=== PATIENT | male | born 1965 | race Caucasian/White ===

== ENCOUNTER 2017-09-21 20:53 | Observation (INO) | payer MEDICARE, OTHER ==
[~2017-09-21] VITALS: Ht 170.2 cm; Wt 86.0 kg
[~2017-09-21 20:53] MED LIST: LISI-357 PO; ZOLP10TA3 PO
[2017-09-21] MEDS ORDERED: GADODIAMIDE PF 287 MG/ML 20 ML VIAL (for RAD MRI) IVCONTRAST ONE (20:54)
[2017-09-21 21:00] VITALS: BP 176/104; PULSE 71; RESP 18; O2SAT 100
[2017-09-21] MEDS ORDERED: SODIUM CHLORIDE 0.9% FLUSH 10 ML FLUSH IVF PRN (21:15)
[2017-09-21 21:22] VITALS: O2SAT 98
[2017-09-21] MEDS ORDERED: AMBI10TA PO (21:24)
[2017-09-21] MEDS ORDERED: ASPI-516 CHEW (21:24)
[2017-09-21] MEDS ORDERED: AMLO2.5T PO (21:24)
--- NOTE | 2017-09-21 21:24 | PD ---
HPI Chief Complaint: Neuro Symptoms/ Deficits Time Seen by Provider: 21:10 Travel History International Travel<30 days: No Contact w/Intl Traveler<30days: No Traveled to known affect area: No History of Present Illness HPI 51-year-old male presents to the emergency department by private transportation in the care of his son for evaluation of approximately 30 minutes of visual disturbance that has now resolved. Patient states that he was feeling unusual, patient had eaten 2 and half hours before so decided to eat additional food/ banana thinking perhaps his blood sugar is low. Then while he was watching TV; approximately an hour to half an hour prior to arrival to the emergency department he noticed that he was seeing only a portion/part of the characters on TV if they were standing [id number] he states that he could only see a portion of one of the characters. Reportedly the symptoms lasted for approximately 30 minutes and then resolve spontaneously. No headache, no dizziness, no complete loss of vision, no double vision, no trouble with his speech or difficulty swallowing, no balance disturbance, no upper or lower extremity numbness, tingling, or weakness. Patient does have history of hypertension for which he is prescribed amlodipine 2.5 mg daily as well as takes a low-dose aspirin; also takes anti-anxiety pill and more recently restarted Ambien for insomnia. Patient had been out of his Ambien for approximately 7 weeks. Patient states he did take his blood pressure medication today and his low-dose aspirin today. Patient's had no injury or fall. Patient states he has traumatic brain injury due to injury sustained in [place] in 2002 and was hospitalized for 2 years. Patient states that his speech is at his baseline. Patient does not report any change in speech or slurring of speech; family member (son) does not report any change in speech or slurring of speech and no facial droop. Patient states that his sister is a nurse at [facility] and encouraged him to come to the emergency room. Patient was [facility] ago and told that he has high cholesterol and hyperglycemia and was told to adjust his diet but was not started on any new dyslipidemic or diabetic medications. No recent fever or chills. Remote history of seizure; does not take any anticonvulsant medications reportedly. Patient reports he feels back to normal and states his vision is back to his baseline and back to normal. Patient also has had no chest pain, shortness of breath, nausea, vomiting, referred neck, jaw, back, shoulder, or arm pain. [facility], [facility] Past Medical History Narrative Medical Aspirin use, hypertension, dyslipidemia, hyperglycemia, traumatic brain injury, irritable bowel syndrome, appendectomy, marijuana use denies alcohol or tobacco use; nursing notes reviewed Hx Anticoagulant Therapy: Yes Blood Disorders: No Anxiety: Yes Heart Rhythm Problems: No Cancer: No Cardiovascular Problems: Yes High Cholesterol: No Chest Pain: No Congestive Heart Failure: No Endocrine: No Gastrointestinal Disorders: Yes (IBS) Genitourinary: No Hypertension: Yes Musculoskeletal: No Neurologic: Yes (TBI) Psychiatric: Yes Respiratory: No Past Surgical History Appendectomy: Yes Neurologic Surgery: Yes (tbi) Other Surgery: Yes Social History Alcohol Use: Yes Tobacco Use: Yes Substance Use: No Allergies-Medications (Allergen,Severity, Reaction): Coded Allergies: Iodinated Contrast- Oral and IV Dye (Verified Allergy, Severe, 09/21/17) Reported Meds & Prescriptions Reported Meds & Active Scripts Active Reported Ambien (Zolpidem Tartrate) 10 Mg Tab 10 Mg PO HS PRN Aspirin 81 Mg Chew 81 Mg CHEW DAILY Amlodipine (Amlodipine Besylate) 2.5 Mg Tab 2.5 Mg PO DAILY Review of Systems Except as stated in HPI: all other systems reviewed are Neg General / Constitutional: No: Fever, Chills Eyes: Positive: Visual changes HENT: No: Headaches, Vertigo, Lightheadedness, Neck Stiffness, Neck Pain Cardiovascular: No: Palpitations, Diaphoresis, Syncope Respiratory: No: Shortness of Breath Gastrointestinal: No: Nausea, Vomiting, Abdominal Pain Genitourinary: No: Flank Pain Skin: No Rash Neurologic: Positive: Other (transient visual disturbance), No: Weakness, Dizziness, Syncope, Focal Abnormalities, Coordination Problem, Headache, Change in Mentation, Slurred Speech, Paresthesia, Incontinence, Seizures Psychiatric: No: Anxiety Endocrine: No: Heat Intolerance Hematologic/Lymphatic: No: Easy Bruising Physical Exam Narrative GENERAL: Well-developed well-nourished male in no acute distress no respiratory distress; GCS 15; blood pressure elevated BP: 176/104 SKIN: Warm and dry. HEAD: Atraumatic. Normocephalic. EYES: Pupils equal and round. Extraocular muscles intact. No scleral icterus. No injection or drainage. ENT: No nasal bleeding or discharge. Mucous membranes pink and moist. NECK: Trachea midline. No JVD. Supple no meningismus no nuchal rigidity. CARDIOVASCULAR: Regular rate and rhythm. RESPIRATORY: No accessory muscle use. Clear to auscultation. Breath sounds equal bilaterally. GASTROINTESTINAL: Abdomen soft, non-tender, nondistended. Hepatic and splenic margins not palpable. MUSCULOSKELETAL: Extremities without clubbing, cyanosis, or edema. No obvious deformities. NEUROLOGICAL: Awake and alert. GCS 15. No obvious cranial nerve deficits. Motor grossly within normal limits. Five out of 5 muscle strength in the arms and legs. No limb ataxia. No pronator drift. DTRs 2+ and equal bilaterally as tested sensory exam intact. Normal, (mildly slow --"his normal since TBI") speech. PSYCHIATRIC: Appropriate mood and affect; insight and judgment normal. Data Data Last Documented VS Vital Signs Date Time Temp Pulse Resp B/P (MAP) Pulse Ox O2 Delivery O2 Flow Rate FiO2 09/22/17 00:34 68 18 168/95 (119) 97 Room Air Orders Orders Electrocardiogram (09/21/17 21:10) Prothrombin Time / Inr (Pt) (09/21/17 21:10) Act Partial Throm Time (Ptt) (09/21/17 21:10) Complete Blood Count With Diff (09/21/17 21:10) Comprehensive Metabolic Panel (09/21/17 21:10) Creatine Kinase (Cpk) (09/21/17 21:10) Drug Screen, Random Urine (09/21/17 21:10) Troponin I (09/21/17 21:10) Urinalysis - C+S If Indicated (09/21/17 21:10) Ct Brain W/O Iv Contrast(Rout) (09/21/17 21:10) Chest, Single Ap (09/21/17 21:10) Ecg Monitoring (09/21/17 21:10) Iv Access Insert/Monitor (09/21/17 21:10) Oximetry (09/21/17 21:10) Sodium Chloride 0.9% Flush (Ns Flush) (09/21/17 21:15) Ondansetron Inj (Zofran Inj) (09/21/17 22:13) Ondansetron Inj (Zofran Inj) (09/21/17 22:30) Clopidogrel (Plavix) (09/21/17 22:45) Aspirin (Aspirin) (09/21/17 22:45) Mra Carotids W Contrast (09/21/17 ) Mra Brain W/O Contrast (Cow) (09/21/17 ) Sodium Chlorid 0.9% 500 Ml Inj (Ns 500 M (09/21/17 22:45) Sodium Chlor 0.9% 1000 Ml Inj (Ns 1000 M (09/21/17 22:45) Head Of Bed (09/21/17 22:41) Mri Brain W/O Contrast (09/21/17 ) Lorazepam Inj (Ativan Inj) (09/21/17 23:45) Lorazepam Inj (Ativan Inj) (09/21/17 23:45) Gadodiamide Pf Inj (Omniscan Pf Inj) (09/21/17 20:54) Admit Order (Ed Use Only) (09/22/17 ) Glove Cuffer / Telemetry GABE.Q8H (09/22/17 01:19) Diet Heart Healthy (09/22/17 Breakfast) Activity Bed Rest (09/22/17 01:19) Notify Dr: Other (09/22/17 01:19) Consult Neurology (09/22/17 ) Labs Laboratory Tests Test 09/21/17 21:38 09/21/17 23:06 White Blood Count 7.4 TH/MM3 Red Blood Count 5.29 MIL/MM3 Hemoglobin 16.0 GM/DL Hematocrit 47.0 % Mean Corpuscular Volume 88.9 FL Mean Corpuscular Hemoglobin 30.2 PG Mean Corpuscular Hemoglobin Concent 33.9 % Red Cell Distribution Width 12.0 % Platelet Count 318 TH/MM3 Mean Platelet Volume 7.8 FL Neutrophils (%) (Auto) 64.5 % Lymphocytes (%) (Auto) 24.7 % Monocytes (%) (Auto) 8.2 % Eosinophils (%) (Auto) 1.6 % Basophils (%) (Auto) 1.0 % Neutrophils # (Auto) 4.8 TH/MM3 Lymphocytes # (Auto) 1.8 TH/MM3 Monocytes # (Auto) 0.6 TH/MM3 Eosinophils # (Auto) 0.1 TH/MM3 Basophils # (Auto) 0.1 TH/MM3 CBC Comment DIFF FINAL Differential Comment Prothrombin Time 11.0 SEC Prothromb Time International Ratio 1.1 RATIO Activated Partial Thromboplast Time 26.8 SEC Blood Urea Nitrogen 14 MG/DL Creatinine 0.90 MG/DL Random Glucose 121 MG/DL Total Protein 7.8 GM/DL Albumin 3.7 GM/DL Calcium Level 8.6 MG/DL Alkaline Phosphatase 72 U/L Aspartate Amino Transf (AST/SGOT) 23 U/L Alanine Aminotransferase (ALT/SGPT) 23 U/L Total Bilirubin 1.2 MG/DL Sodium Level 137 MEQ/L Potassium Level 3.8 MEQ/L Chloride Level 102 MEQ/L Carbon Dioxide Level 26.8 MEQ/L Anion Gap 8 MEQ/L Estimat Glomerular Filtration Rate 89 ML/MIN Total Creatine Kinase 80 U/L Troponin I LESS THAN 0.02 NG/ML Urine Color YELLOW Urine Turbidity CLEAR Urine pH 5.5 Urine Specific [place] 1.022 Urine Protein NEG mg/dL Urine Glucose (UA) NEG mg/dL Urine Ketones NEG mg/dL Urine Occult Blood SMALL Urine Nitrite NEG Urine Bilirubin NEG Urine Leukocyte Esterase NEG Urine RBC 10-14 /hpf Urine WBC 0-2 /hpf Urine Squamous Epithelial Cells 0-5 /hpf Urine Bacteria NONE /hpf Microscopic Urinalysis Comment CULT NOT INDICATED Urine Opiates Screen NEG Urine Barbiturates Screen NEG Urine Amphetamines Screen NEG Urine Benzodiazepines Screen POS Urine Cocaine Screen NEG Urine Cannabinoids Screen POS MDM Medical Decision Making Medical Screen Exam Complete: Yes Emergency Medical Condition: Yes Medical Record Reviewed: Yes Interpretation(s) EKG: Normal sinus rhythm rate 65 no acute injury pattern no ST elevation no ectopy noted Last Impressions Head CT 09/21/172109 Signed Impressions: Service Date/Time: August 21:22 - CONCLUSION: Negative noncontrast head CT. Mild chronic sinus disease. Jace Flores MD Chest X-Ray 09/21/172109 Signed Impressions: Service Date/Time: August 21:13 - CONCLUSION: No evidence of acute cardiopulmonary disease. Jace lFores MD CBC & BMP Diagram 09/21/17 21:38 Total Protein 7.8, Albumin 3.7, Calcium Level 8.6, Alkaline Phosphatase 72, Aspartate Amino Transf (AST/SGOT) 23, Alanine Aminotransferase (ALT/SGPT) 23, Total Bilirubin 1.2 H Vital Signs Date Time Temp Pulse Resp B/P (MAP) Pulse Ox O2 Delivery O2 Flow Rate FiO2 09/21/17 23:10 78 18 176/105 (128) 98 09/21/17 22:26 70 18 167/97 (120) 98 Room Air 09/21/17 21:22 98 Room Air 09/21/17 21:19 Room Air 09/21/17 21:00 71 18 176/104 (128) 100 Coagulation studies: Within normal limits CK total 80, not elevated; troponin I: Less than 0.02, not elevated Urine drug screen positive for benzodiazepines and cannabinoids Urinalysis RBCs 10-[address] 09/21/172109 Signed Impressions: Service Date/Time: August 21:22 - CONCLUSION: Negative noncontrast head CT. Mild chronic sinus disease. Jace Flores MD Chest X-Ray 09/21/172109 Signed Impressions: Service Date/Time: August 21:13 - CONCLUSION: No evidence of acute cardiopulmonary disease. Jace Flores MD Neck Magnetic Resonance Angiography 09/21/17 0000 Signed Impressions: Service Date/Time: August 23:56 - CONCLUSION: Normal examination. Jace Richard MD Head Magnetic Resonance Angiography 09/21/17 0000 Signed Impressions: Service Date/Time: August 23:56 - CONCLUSION: Normal examination. Jace Richard MD Brain MRI 09/21/17 0000 Signed Impressions: Service Date/Time: August 23:56 - CONCLUSION: 1. No acute abnormality is seen. 2. There are a few scattered small areas of focal demyelination of the white matter. These are unchanged. Jace Richard MD Differential Diagnosis Transient visual disturbance, floaters, TIA, CVA, uncontrolled hypertension, arrhythmia, focal seizure, substance use Narrative Course B, NIHSS: 0; sent for CT brain w/o stat @ 9:48 PM NIHSS: 0, BP: 172/101; patient reports he's at his normal; girl friend now at bedside reports "he just seems tired", doesn't note any new findings; son reports "he's not been himself for a week". @ 22:15 recurrent left sided blurring of vision with intermittent flashes, flashes resolved no headache, positive nausea, no vomiting;BP 167/97 patient with left sided visual field disturbance; stat call to neurology @ 22:55 no visual disturbance now patient notes 1/10 chest tightness @ 23:38 to MR; ativan 1 mg iv for c/o claustrophobia @ 00:29 returned from MR; NIHSS: 0; no headache, no dizziness, no visual disturbance, no nausea, cp 0-1/10 , no referred pain or discomfort @ 01:15 MRI brain, MRA brain, neck: no acute abnormalities per reading radiologist; patient informed of results --call placed to medicine service Critical Care Narrative Aggregate critical care time was 35 minutes. Time to perform other separately billable procedures was not included in the critical care time. My time did not include minutes spent treating any other patients simultaneously or on activities that did not directly contribute to the patient's treatment. The services I provided to this patient were to treat and/or prevent clinically significant deterioration that could result in: Stroke, dissection, arrhythmia, I provided critical care services requiring my management, as noted below: Chart data review, documentation time, medication orders and management, vital sign assessments/reviewing monitor data, ordering and reviewing lab tests, ordering and interpreting/reviewing x-rays and diagnostic studies, care of the patient and discussion of the patient with the admitting physicians. Physician Communication Physician Communication call placed to neurology --- discussed with Dr Blackwell --not tpa candidate -- give stat dose of aspirin 325 mg , plavix 150 mg po, and NS 300 ml bolus now and send for stat MRA w/ contrast carotids and brain and MRI brain w/ and w/o call with abnormal results, q 15 m neuro exams; call placed to [facility] service for adm ---Dr Morales's service Diagnosis Primary Impression: TIA (transient ischemic attack) Qualified Codes: G45.9 - Transient cerebral ischemic attack, unspecified Additional Impression: HTN (hypertension) Qualified Codes: I10 - Essential (primary) hypertension Admitting Information Admitting Physician Requests: Admit Poppy Zuniga MD Sep 21, 2017 21:24
--- NOTE | 2017-09-21 21:40 | RADRPT ---
EXAM DATE/TIME: 09/21/2017 21:13 [facility] COMPARISON: No previous studies available for comparison. INDICATIONS : Short of breath and chest pain. Patient states he was sitting at home and felt like he went blind for a few minutes. MEDICAL HISTORY : Hypertension. SURGICAL HISTORY : Appendectomy. ENCOUNTER: Initial ACUITY: 1 day PAIN SCORE: 2/10 LOCATION: Bilateral chest FINDINGS: A single view of the chest demonstrates the lungs to be symmetrically aerated without evidence of mas s, infiltrate or effusion. The cardiomediastinal contours are unremarkable. Osseous structures are intact. CONCLUSION: No evidence of acute cardiopulmonary disease. Jace Flores MD on September 21, 2017 at 21:37 Board Certified Radiologist. This report was verified electronically.
--- NOTE | 2017-09-21 21:42 | RADRPT ---
EXAM DATE/TIME: 09/21/2017 21:22 [facility] COMPARISON: MRI BRAIN W/O CONTRAST, January 02, 2016, 15:12. CT BRAIN W/O CONTRAST, January 02, 2016, 5:09. INDICATIONS : Loss of vision and tingling of extremities for 1 hour. RADIATION DOSE: 59.28 CTDIvol (mGy) MEDICAL HISTORY : Hypertension. traumatic brain injury 2003 SURGICAL HISTORY : None. ENCOUNTER: Initial ACUITY: 1 day PAIN SCALE: 0/10 LOCATION: cranial TECHNIQUE: Multiple contiguous axial images were obtained of the head. Using automated exposure control and adj ustment of the mA and/or kV according to patient size, radiation dose was kept as low as reasonably a chievable to obtain optimal diagnostic quality images. DICOM format image data is available electro nically for review and comparison. FINDINGS: CEREBRUM: The ventricles are normal for age. No evidence of midline shift, mass lesion, hemorrhage or acute in farction. No extra-axial fluid collections are seen. POSTERIOR FOSSA: The cerebellum and brainstem are intact. The 4th ventricle is midline. The cerebellopontine angle i s unremarkable. EXTRACRANIAL: Mild mucoperiosteal thickening and small mucous retention cyst seen of the ethmoid and maxillary air cells. The mucoperiosteal thickening is modestly improved from the prior CT. SKULL: The calvaria is intact. No evidence of skull fracture. CONCLUSION: Negative noncontrast head CT. Mild chronic sinus disease. Jace Flores MD on September 21, 2017 at 21:38 Board Certified Radiologist. This report was verified electronically.
[2017-09-21 21:46] LABS: AUTOMATED NEUTROPHIL # 4.8 TH/MM3 (1.8-7.7); BASOPHIL # 0.1 TH/MM3 (0-0.2); EOSINOPHIL # 0.1 TH/MM3 (0-0.4); EOSINOPHIL % 1.6 % (0.0-4.0); LYMPH % 24.7 % (9.0-44.0); LYMPHOCYTE # 1.8 TH/MM3 (1.0-4.8); MEAN CELL VOLUME 88.9 FL (80.0-100.0); MEAN CORPUSCULAR HEMOGLOBIN 30.2 PG (27.0-34.0); MEAN CORPUSCULAR HGB CONC 33.9 % (32.0-36.0); MEAN PLATELET VOLUME 7.8 FL (7.0-11.0); MONO % 8.2 % (0.0-8.0); MONOCYTE # 0.6 TH/MM3 (0-0.9); NEUT % 64.5 % (16.0-70.0); PLATELET COUNT 318 TH/MM3 (150-450); RED BLOOD COUNT 5.29 MIL/MM3 (4.50-5.90); WHITE BLOOD COUNT 7.4 TH/MM3 (4.0-11.0)
[2017-09-21 21:54] LABS: CHLORIDE 102 MEQ/L (98-107); SODIUM (NA) 137 MEQ/L (136-145)
[2017-09-21 21:58] LABS: CALCIUM 8.6 MG/DL (8.5-10.1)
[2017-09-21 21:59] LABS: ALBUMIN 3.7 GM/DL (3.4-5.0); BICARBONATE 26.8 MEQ/L (21.0-32.0); BLOOD UREA NITROGEN 14 MG/DL (7-18); GLUCOSE,RANDOM 121 MG/DL (74-106); INTERNATIONAL NORMALIZED RATIO 1.1 RATIO
[2017-09-21 22:02] LABS: ALT (GPT) 23 U/L (12-78); AST (GOT) 23 U/L (15-37); GLOMERULAR FILTRATION RATE 89 ML/MIN (>89)
[2017-09-21 22:03] LABS: TOTAL BILIRUBIN ADULT 1.2 MG/DL (0.2-1.0)
[2017-09-21 22:04] LABS: TOTAL PROTEIN 7.8 GM/DL (6.4-8.2)
[2017-09-21 22:05] LABS: ALKALINE PHOSPHATASE 72 U/L (45-117)
[2017-09-21 22:07] LABS: TROPONIN I LESS THAN 0.02 NG/ML (0.02-0.05)
[2017-09-21] MEDS ORDERED: ONDANSETRON HCL 4 MG/2 ML VIAL ONE (22:13)
[2017-09-21 22:26] VITALS: BP 167/97; PULSE 70; RESP 18; O2SAT 98
[2017-09-21] MEDS ORDERED: ONDANSETRON HCL 4 MG/2 ML VIAL IV PUSH ONE (22:30)
[2017-09-21] MEDS ORDERED: ASPIRIN 325 MG TAB PO ONE (22:45)
[2017-09-21] MEDS ORDERED: CLOPIDOGREL 75 MG TAB PO ONE (22:45)
[2017-09-21] MEDS ORDERED: SODIUM CHLORID 0.9% 500 ML INJ 500 ML IV ONE (22:45)
[2017-09-21] MEDS: SODIUM CHLOR 0.9% 1000 ML INJ 1,000 ML IV SCH (22:58)
[2017-09-21 23:10] VITALS: BP 176/105; PULSE 78; RESP 18; O2SAT 98
[2017-09-21 23:19] LABS: BILIRUBIN, URINE NEG (NEG); BLOOD, URINE SMALL (NEG); GLUCOSE,URINE NEG (NEG); KETONE, URINE NEG (NEG); NITRITE,URINE NEG (NEG); PH, URINE 5.5 (5.0-8.5); URINE LEUKOCYTE ESTERASE NEG (NEG)
[2017-09-21 23:22] LABS: URINE COLOR YELLOW (YELLW/STRAW)
[2017-09-21 23:23] LABS: SQUAMOUS EPITHELIAL CELL URINE 0-5 /hpf (0-5); WBC, URINE 0-2 /hpf (0-5)
[2017-09-21] MEDS ORDERED: LORazepam 2 MG/ML VIAL IV PUSH PRN (23:45)
[2017-09-21] MEDS ORDERED: LORazepam 2 MG/ML VIAL IV PUSH ONE (23:45)
[2017-09-22] VITALS (18 sets, daily range): BP systolic 129–168; BP diastolic 74–95; PULSE 54–88; RESP 14–39; TEMP 97.8–98.2; O2SAT 93–97
--- NOTE | 2017-09-22 00:22 | RADRPT ---
EXAM DATE/TIME: 09/21/2017 23:56 [facility] COMPARISON: No previous studies available for comparison. INDICATIONS : Visual disturbances. MEDICAL HISTORY : Hypertension. TBI SURGICAL HISTORY : Appendectomy. Rt foot ENCOUNTER: Initial ACUITY: 1 day PAIN SCORE: 4/10 LOCATION: cranial Please note a normal MRA of the brain does not entirely exclude the possibility of a small aneurysm, nor the possibility of distal intracranial vessel disease. TECHNIQUE: 3D time of flight MRA was performed. Source images, multiplanar STS MIP, and 3D volume MIP reconstru ctions were reviewed. FINDINGS: There is excellent visualization of the major intracranial arteries out to the second-order branch ve ssels. There is no evidence for aneurysm, vessel truncation or stenosis, and no evidence for vascula r malformation. CONCLUSION: Normal examination. Jace Richard MD on September 22, 2017 at 0:16 Board Certified Radiologist. This report was verified electronically.
--- NOTE | 2017-09-22 00:42 | RADRPT ---
EXAM DATE/TIME: 09/21/2017 23:56 [facility] COMPARISON: No previous studies available for comparison. INDICATIONS : Visual disturbances. CONTRAST: 20 cc Omniscan (gadodiamide) IV MEDICAL HISTORY : Hypertension. TBI SURGICAL HISTORY : Appendectomy. Rt foot ENCOUNTER: Initial ACUITY: 1 day PAIN SCORE: 4/10 LOCATION: cranial Percent stenosis is calculated using the diameter of the stenotic region over the diameter of the nor mal distal internal carotid artery. TECHNIQUE: Bolus infused MRA of the extracranial circulation was performed using a neurovascular coil. Post pro cessing was performed including rotating subvolume maximum intensity projections of each carotid zoran ry, rotating full volume maximum intensity projections of both carotid arteries, sagittal and coronal sliding thin slab reformations of each carotid artery, and left oblique sliding thin slab reformatio n through the aortic arch to include the origin of the arch branch vessels. FINDINGS: AORTIC ARCH: There is a three vessel origin of the great vessels from the aorta. No evidence of ostial narrowing. RIGHT CAROTID: The common carotid artery is intact. The carotid bulb has a normal configuration without ulceration or narrowing. The internal carotid artery lumen is smooth without stenosis. The external carotid ar tiffany is intact. LEFT CAROTID: The common carotid artery is intact. The carotid bulb has a normal configuration without ulceration or narrowing. The internal carotid artery lumen is smooth without stenosis. The external carotid ar tiffany is intact. VERTEBRALS: The vertebral arteries have a symmetric diameter. No stenotic lesions are seen. CONCLUSION: Normal examination. Jace Richard MD on September 22, 2017 at 0:39 Board Certified Radiologist. This report was verified electronically.
--- NOTE | 2017-09-22 00:42 | RADRPT ---
EXAM DATE/TIME: 09/21/2017 23:56 [facility] COMPARISON: MRI BRAIN W/O CONTRAST, January 02, 2016, 15:12. INDICATIONS : Visual disturbances. MEDICAL HISTORY : Hypertension. TBI SURGICAL HISTORY : Appendectomy. Rt foot ENCOUNTER: Initial ACUITY: 1 day PAIN SCORE: 4/10 LOCATION: cranial TECHNIQUE: Multiplanar, multisequence MRI of the brain was performed without contrast. FINDINGS: CEREBRUM: The ventricles are normal for age. No evidence of midline shift, mass lesion, hemorrhage or acute in farction. No extraaxial fluid collections are seen. The pituitary gland and suprasellar cistern are normal in configuration. WHITE MATTER: There is small scattered areas of increased signal seen in the frontal white matter. POSTERIOR FOSSA: The cerebellum and brainstem are intact. The 4th ventricle is midline. The cerebellopontine angle is unremarkable. The cerebellar tonsils are normal in position. DIFFUSION IMAGING: No focal areas of restricted diffusion are seen. No evidence of acute infarction. EXTRACRANIAL: The visualized portions of the orbits and paranasal sinuses are unremarkable. CONCLUSION: 1. No acute abnormality is seen. 2. There are a few scattered small areas of focal demyelination of the white matter. These are unchan ged. Jace Richard MD on September 22, 2017 at 0:37 Board Certified Radiologist. This report was verified electronically.
[2017-09-22] MEDS ORDERED: GLUCAGON 1 MG/ML VIAL OTHER PRN (01:30)
[2017-09-22] MEDS ORDERED: ENALAPRILAT 1.25 MG/ML VIAL IV PUSH PRN (01:30)
[2017-09-22] MEDS ORDERED: SODIUM CHLORIDE 0.9% FLUSH 10 ML FLUSH IV FLUSH PRN (01:30)
[2017-09-22] MEDS ORDERED: DEXTROSE 50% IN WATER 50 ML VIAL(D50) IV PUSH PRN (01:30)
[2017-09-22] MEDS: HEPARIN SODIUM - SQ 10,000 UNITS/ML VIAL SQ SCH ×2 (02:26→11:01)
[2017-09-22 07:59] LABS: TROPONIN I LESS THAN 0.02 NG/ML (0.02-0.05)
--- NOTE | 2017-09-22 08:33 | EKG ---
Date Performed: 09/22/2017 Time Performed: 03:36:27 PTAGE: 51 years EKG: Sinus rhythm WITH SINUS ARRHYTHMIA NORMAL ECG PREVIOUS TRACING : 09/21/2017 21.16 No change from previous tracing noted. DOCTOR: Kevin Moreland Interpretating Date/Time 09/22/2017 08:32:03
--- NOTE | 2017-09-22 08:48 | EKG ---
Date Performed: 09/21/2017 Time Performed: 21:16:20 PTAGE: 51 years EKG: Sinus rhythm WITH SINUS ARRHYTHMIA NORMAL ECG PREVIOUS TRACING : 01/02/2016 14.39 No change from previous tracing noted. DOCTOR: Kevin Moreland Interpretating Date/Time 09/22/2017 08:48:18
[2017-09-22] MEDS ORDERED: ASPIRIN 325 MG TAB PO SCH (09:00)
[2017-09-22] MEDS ORDERED: SODIUM CHLORIDE 0.9% FLUSH 10 ML FLUSH IV FLUSH SCH (09:00)
--- NOTE | 2017-09-22 10:05 | HHI.HP ---
[facility] Admission Diagnosis TIA , visual disturbances Diagnoses: Chief Complaint: vision changes Travel History International Travel<30 Days: No Contact w/Intl Traveler <30 Da: No Traveled to Known Affected Are: No History of Present Illness 51-year-old white male being admitted for strokelike symptoms. Patient was in his usual state of health until yesterday evening when he reported having some nausea after eating some bananas. This was then followed by a sudden onset of visual disturbances involving some Inc. like splotches in his visual field bilaterally while he was watching television. He could not tell if it was limited to just one eye or both of his eyes. The disturbance was transient and resolved before he came to the hospital. It recurred one more time and went away. However the patient thinks now that his vision is slightly blurrier than baseline even with his glasses on (for farsightedness). Has any deborah horrific shortness of breath or chest pain. Denies any focal numbness or weakness in any extremities, denies any drooling, facial droop, choking on meals. Per neurology recommendations, the emergency room one ahead and obtained imaging which was overall unremarkable. Patient reports such an episode happening one time in the past about 6 months ago where he was also lightheaded at that time and the episode transiently and spontaneously self resolved. He did not seek further medical attention at that time for it. Patient denies any prior history of strokes or coronary artery disease. Review of Systems Except as stated in HPI: all other systems reviewed are Neg Past Family Social History Past Medical History Hypertension, traumatic brain injury Past Surgical History Appendectomy Allergies: Coded Allergies: Iodinated Contrast- Oral and IV Dye (Verified Allergy, Severe, 09/21/17) Family History Family history of strokes Social History reports hx of smoking Physical Exam Vital Signs Vital Signs Date Time Temp Pulse Resp B/P (MAP) Pulse Ox O2 Delivery O2 Flow Rate FiO2 09/22/17 06:00 69 09/22/17 06:00 97.8 60 19 138/93 (108) 95 09/22/17 05:05 57 09/22/17 05:00 58 20 129/74 (92) 94 09/22/17 04:45 60 09/22/17 04:00 68 20 144/81 (102) 93 09/22/17 03:55 74 20 141/91 (108) 95 09/22/17 03:00 72 09/22/17 02:51 97.8 68 14 153/84 (107) 97 09/22/17 02:36 98.2 70 18 152/78 (102) 98 Nasal Cannula 09/22/17 00:34 68 18 168/95 (119) 97 Room Air 09/21/17 23:10 78 18 176/105 (128) 98 09/21/17 22:26 70 18 167/97 (120) 98 Room Air 09/21/17 21:22 98 Room Air 09/21/17 21:19 Room Air 09/21/17 21:00 71 18 176/104 (128) 100 Physical Exam VS: afebrile GENERAL: Middle-aged white male, lying in bed, no acute distress SKIN: Warm and dry. EYES: Pupils equal and round. No scleral icterus. No injection or drainage. Able to distinguish the number of fingers held up at about 2 feet length with both eyes. ENT: No nasal bleeding or discharge. Mucous membranes pink and moist. CARDIOVASCULAR: Regular rate and rhythm. no murmurs RESPIRATORY: No accessory muscle use. Clear to auscultation. Breath sounds equal bilaterally. GASTROINTESTINAL: Abdomen soft, non-tender, nondistended. Extremities: No clubbing, cyanosis, or edema. No obvious deformities. MUSCULOSKELETAL: grossly intact ROM with 5/5 strength in upper and lower extremities proximally; adequate muscle bulk and tone for age and habitus NEUROLOGICAL: Awake and alert. No obvious cranial nerve deficits. No facial droop nor slurred speech noted. Extraocular motions intact, uvula and tongue in midline. Intact sensation to light touch over face and proximal upper and lower changes bilaterally. +2 patellar reflexes bilaterally. PSYCHIATRIC: Appropriate mood and affect; insight and judgment normal. Laboratory Laboratory Tests Test 09/21/17 21:38 09/21/17 23:06 09/22/17 06:40 White Blood Count 7.4 Red Blood Count 5.29 Hemoglobin 16.0 Hematocrit 47.0 Mean Corpuscular Volume 88.9 Mean Corpuscular Hemoglobin 30.2 Mean Corpuscular Hemoglobin Concent 33.9 Red Cell Distribution Width 12.0 Platelet Count 318 Mean Platelet Volume 7.8 Neutrophils (%) (Auto) 64.5 Lymphocytes (%) (Auto) 24.7 Monocytes (%) (Auto) 8.2 Eosinophils (%) (Auto) 1.6 Basophils (%) (Auto) 1.0 Neutrophils # (Auto) 4.8 Lymphocytes # (Auto) 1.8 Monocytes # (Auto) 0.6 Eosinophils # (Auto) 0.1 Basophils # (Auto) 0.1 CBC Comment DIFF FINAL Differential Comment Prothrombin Time 11.0 Prothromb Time International Ratio 1.1 Activated Partial Thromboplast Time 26.8 Blood Urea Nitrogen 14 Creatinine 0.90 Random Glucose 121 Total Protein 7.8 Albumin 3.7 Calcium Level 8.6 Alkaline Phosphatase 72 Aspartate Amino Transf (AST/SGOT) 23 Alanine Aminotransferase (ALT/SGPT) 23 Total Bilirubin 1.2 Sodium Level 137 Potassium Level 3.8 Chloride Level 102 Carbon Dioxide Level 26.8 Anion Gap 8 Estimat Glomerular Filtration Rate 89 Total Creatine Kinase 80 71 Troponin I LESS THAN 0.02 LESS THAN 0.02 Urine Color YELLOW Urine Turbidity CLEAR Urine pH 5.5 Urine Specific [place] 1.022 Urine Protein NEG Urine Glucose (UA) NEG Urine Ketones NEG Urine Occult Blood SMALL Urine Nitrite NEG Urine Bilirubin NEG Urine Leukocyte Esterase NEG Urine RBC 10-14 Urine WBC 0-2 Urine Squamous Epithelial Cells 0-5 Urine Bacteria NONE Microscopic Urinalysis Comment CULT NOT INDICATED Urine Opiates Screen NEG Urine Barbiturates Screen NEG Urine Amphetamines Screen NEG Urine Benzodiazepines Screen POS Urine Cocaine Screen NEG Urine Cannabinoids Screen POS Result Diagram: [id number]/21/[id number] Imaging Last Impressions Head CT 09/21/172109 Signed Impressions: Service Date/Time: August 21:22 - CONCLUSION: Negative noncontrast head CT. Mild chronic sinus disease. Jace Flores MD Chest X-Ray 09/21/172109 Signed Impressions: Service Date/Time: August 21:13 - CONCLUSION: No evidence of acute cardiopulmonary disease. Jace Flores MD Neck Magnetic Resonance Angiography 09/21/17 0000 Signed Impressions: Service Date/Time: August 23:56 - CONCLUSION: Normal examination. Jace Richard MD Head Magnetic Resonance Angiography 09/21/17 0000 Signed Impressions: Service Date/Time: August 23:56 - CONCLUSION: Normal examination. Jace Richard MD Brain MRI 09/21/17 0000 Signed Impressions: Service Date/Time: August 23:56 - CONCLUSION: 1. No acute abnormality is seen. 2. There are a few scattered small areas of focal demyelination of the white matter. These are unchanged. Jace Richard MD Caprini VTE Risk Assessment Caprini VTE Risk Assessment: Mod/High Risk (score >= 2) Caprini Risk Assessment Model Point Value = 1 Point Value = 2 Point Value = 3 Point Value = 5 Age 41-60 Minor surgery BMI > 25 kg/m2 Swollen legs Varicose veins or History of unexplained or recurrent spontaneous Oral contraceptives or hormone replacement Sepsis (< 1 month) Serious lung disease, including pneumonia (< 1 month) Abnormal pulmonary function Acute myocardial infarction Congestive heart failure (< 1 month) History of inflammatory bowel disease Medical patient at bed rest Age 61-74 Arthroscopic surgery Major open surgery (> 45 min) Laparoscopic surgery (> 45 min) Malignancy Confined to bed (> 72 hours) Immobilizing plaster cast Central venous access Age >= 75 History of VTE Family history of VTE Factor V Leiden Prothrombin 25048A Lupus anticoagulant Anticardiolipin antibodies Elevated serum homocysteine Heparin-induced thrombocytopenia Other congenital or acquired thrombophilia Stroke (< 1 month) Elective arthroplasty Hip, pelvis, or leg fracture Acute spinal cord injury (< 1 month) Prophylaxis Regimen Total Risk Factor Score Risk Level Prophylaxis Regimen 0-1 Low Early ambulation 2 Moderate Order ONE of the following: *Sequential Compression Device (SCD) *Heparin 5000 units SQ BID 3-4 Higher Order ONE of the following medications: *Heparin 5000 units SQ TID *Enoxaparin/Lovenox 40 mg SQ daily (WT < 150 kg, CrCl > 30 mL/min) *Enoxaparin/Lovenox 30 mg SQ daily (WT < 150 kg, CrCl > 10-29 mL/min) *Enoxaparin/Lovenox 30 mg SQ BID (WT < 150 kg, CrCl > 30 mL/min) AND/OR *Sequential Compression Device (SCD) 5 or more Highest Order ONE of the following medications: *Heparin 5000 units SQ TID (Preferred with Epidurals) *Enoxaparin/Lovenox 40 mg SQ daily (WT < 150 kg, CrCl > 30 mL/min) *Enoxaparin/Lovenox 30 mg SQ daily (WT < 150 kg, CrCl > 10-29 mL/min) *Enoxaparin/Lovenox 30 mg SQ BID (WT < 150 kg, CrCl > 30 mL/min) AND *Sequential Compression Device (SCD) Assessment and Plan Assessment and Plan Visual disturbances - Possible strokelike symptoms; so far imaging has been negative, engaging in permissive hypertension, neurology consult in place - Aspirin, Lipitor. - Ophthalmology is not available at this time for coverage. I suspect that his transient visual disturbances can be seen as a prompt outpatient appointment. - fall precautions; OT/ST/PT. all is unremarkable, anticipate discharge later today assuming neurology is good with discharge. - I independently reviewed EKG and see sinus rhythm SCDs Addendum: Imaging studies are all unremarkable. Neurology had been consulted. Case discussed with them, further recommendations, patient does not need to stay and patient to see ophthalmology. Patient was informed by me that if his visual disturbances did come back that he should go to the ER and requested to be seen by an coat room attendant. He was discharged on aspirin and Lipitor. Patient has met maximum benefit from hospitalization and is clinically stable for discharge. Patient has reported some mild chest pressure but no chest pain to the neurologist. I informed him that if his chest pressure worsens or has deborah chest pain that he should return to the ER. Patient has verbalized understanding. Physician Certification 2 Midnight Certification Type: Admission for Inpatient Services Order for Inpatient Services The services are ordered in accordance with Medicare regulations or non- Medicare payer requirements, as applicable. In the case of services not specified as inpatient-only, they are appropriately provided as inpatient services in accordance with the 2-midnight benchmark. Estimated LOS (days): 2 2 days is the estimated time the patient will need to remain in the hospital, assuming treatment plan goals are met and no additional complications. Post-Hospital Plan: Not yet determined Dylan Aceves MD Sep 22, 2017 10:05
[2017-09-22] MEDS: INSULIN ASPART SUPPLEMENTAL SCALE SQ SCH ×2 (11:00→13:28)
[2017-09-22 12:01] LABS: TROPONIN I LESS THAN 0.02 NG/ML (0.02-0.05)
--- NOTE | 2017-09-22 12:18 | EKG ---
Date Performed: 09/22/2017 Time Performed: 11:09:48 PTAGE: 51 years EKG: Sinus rhythm WITH SINUS ARRHYTHMIA NORMAL ECG PREVIOUS TRACING : 09/22/2017 03.36 No change from previous tracing noted. DOCTOR: Kevin Moreland Interpretating Date/Time 09/22/2017 12:18:05
[2017-09-22] MEDS: SODIUM CHLOR 0.9% 1000 ML INJ 1,000 ML IV SCH (13:03)
[2017-09-22 15:32] LABS: HEMOGLOBIN A1C 6.1 % (4.3-6.0)
[2017-09-22 16:56] LABS: CHOLESTEROL/ HDL RATIO 5.66 RATIO; HDL CHOLESTEROL 36.2 MG/DL (40.0-60.0)
--- NOTE | 2017-09-22 17:07 | MB ---
cc: FRANKIE MILAN MD DATE OF CONSULTATION 09/22/17 He is a 51-year-old with history of a neurologic symptoms last evening. This happened twice, the first-time was at home and the second time in the hospital. His is at bedside. Both of them provide a clear history. He describes that he was having some visual symptoms. He was having lightening bolts sparkling in front of his eyes and there was some blotchy areas of visual loss that seem to be bilateral, but perhaps left more than right. It lasted 15-20 minutes. Afterwards, he did have a mild headache. He does admit a history of headaches. He has had no symptoms today. He admits a history of traumatic brain injury in 2002 apparently when he was in [place]. He has been taking blood pressure medications lately. He takes baby aspirin daily. He denies stroke, seizures or TIAs. NEUROLOGIC EXAM Neurological exam is completely normal. His visual ascencio were full. Ocular movements are normal. Pupils equal and reactive. No facial weakness. Speech and language normal. He has good strength throughout and reflexes were diminished at the elbows, 1+ at the knees and ankles. Plantar responses were flexor. I did not ambulate him. LABORATORY DATA CBC was normal. Chemistry normal with a glucose 121. IMAGING STUDIES MRI brain, MRA neck and head were all normal except for some scattered areas of demyelination on the brain MRI. The CT head was negative. ASSESSMENT 1. Transient visual symptoms more suggestive of scotoma and migraine related variant. These actually were followed by a headache. I suspect this is benign and from a migraine variant syndrome rather than a TIA. Therefore, neurologic porter, I suggest that he just increase his baby aspirin to twice a day. I am going to add the lipid profile in his blood work. If he continues to have visual phenomenon or other neurologic symptoms, he ought to be followed in the office. He admits some chest pressure, discomfort and this evidently is a medical decision in terms of the care to be provided. I have discussed all of these with the nursing staff. Thank you for asking us to assist in his care. Please call us p.r.n. Frankie Milan MD [facility]/ /12:06 PM /4:45 PM
[2017-09-22] MEDS ORDERED: LIPI10TA PO (17:18)
[2017-09-22] MEDS ORDERED: ASPI-516 CHEW (17:18)
--- NOTE | 2017-09-22 17:18 | HHI.DCPOC ---
Discharge Care Plan Diagnosis: (1) TIA (transient ischemic attack) Goals to Promote Your Health * To prevent worsening of your condition and complications * To maintain your health at the optimal level Directions to Meet Your Goals Take your medications as prescribed Follow your dietary instruction Follow activity as directed Keep your appointments as scheduled Take your immunizations and boosters as scheduled If your symptoms worsen call your PCP, if no PCP go to Urgent Care Center or Emergency Room Smoking is Dangerous to Your Health. Avoid second hand smoke Call the 24-hour hour crisis hotline for domestic abuse at Dylan Aceves MD Sep 22, 2017 17:18
[2017-09-22] MEDS ORDERED: PROT40TA PO (17:36)
--- NOTE | 2017-09-22 18:51 | ECHRPT ---
Indication: cva/tia CONCLUSIONS The left ventricular systolic function is normal with an estimated ejection fraction in the range of 60-65%. Trace mitral valve regurgitation. There is trace tricuspid valve regurgitation. BP: / HR: Rhythm: MEASUREMENTS (Male / Female) Normal Values Technical Quality:Good 2D ECHO LV Diastolic Diameter PLAX 3.8 cm 4.2 - 5.9 / 3.9 - 5.3 cm LV Systolic Diameter PLAX 2.7 cm IVS Diastolic Thickness 1.4 cm 0.6 - 1.0 / 0.6 - 0.9 cm LVPW Diastolic Thickness 1.0 cm 0.6 - 1.0 / 0.6 - 0.9 cm LV Relative Wall Thickness 0.6 RV Internal Dim ED PLAX 3.6 cm M-MODE Aortic Root Diameter MM 3.3 cm LA Systolic Diameter MM 3.2 cm LA Ao Ratio MM 1.0 AV Cusp Separation MM 1.8 cm DOPPLER LV E' Lateral Velocity 10.1 cm/s LV E' Septal Velocity 6.9 cm/s TR Peak Velocity 259.0 cm/s TR Peak Gradient 26.8 mmHg Right Atrial Pressure 10.0 mmHg Pulmonary Artery Systolic Pressu 36.8 mmHg Right Ventricular Systolic Press 36.8 mmHg FINDINGS LEFT VENTRICLE Normal left ventricular size. The left ventricular systolic function is normal with an estimated ejection fraction in the range of 60-65%. No regional wall motion abnormalities are present. Nonobstructive prominent basal hypertrophy is present consistent with sigmoid septum. RIGHT VENTRICLE Normal right ventricular size and systolic function. LEFT ATRIUM The left atrial size is normal. RIGHT ATRIUM The right atrial size is normal. ATRIAL SEPTUM Normal atrial septal thickness. AORTA The aortic root and proximal ascending aorta are normal in size on limited imaging. MITRAL VALVE Structurally normal mitral valve. Trace mitral valve regurgitation. No mitral valve stenosis. AORTIC VALVE Probable trileaflet aortic valve. No aortic valve stenosis or regurgitation. TRICUSPID VALVE Structurally normal tricuspid valve. There is trace tricuspid valve regurgitation. The estimated pulmonary arterial pressure is 36.8 mmHg. PULMONARY VALVE No pulmonary valve regurgitation or stenosis. VESSELS The inferior vena cava is normal in size. PERICARDIUM No pericardial effusion. Juan Alberto Roberts DO (Electronically Signed) Final Date:22 September 2017 18:50
== END 2017-09-22 18:40 | disposition home or self-care (01) ==
LOC: PHED 20:53 → PHEDA 09-22 01:22 → PHICU 09-22 02:44 → PH3B 09-22 16:33
PROVIDERS: ADMIT Hospitalist; ATTEND Hospitalist
DX: G45.9 Transient cerebral ischemic attack, unspecified (principal); R29.700 NIHSS score 0; I10 Essential (primary) hypertension; E78.5 Hyperlipidemia, unspecified; E78.00 Pure hypercholesterolemia, unspecified; K58.9 Irritable bowel syndrome, unspecified; Z72.0 Tobacco use
CPT/HCPCS: 70450; 70544; 70548; 70551; 71045; 80053; 80061; 80307; 81001; 82550; 82948; 83036; 84484; 85025; 85610; 85730; 93005; 93306; 96125; 96361; 96372; 96374; 96375; 96376; 97162; 97166; 99291; A9579; G0378; G8987; G8988; G8989; G9168; G9169; G9170; J1644; J1815; J2060; J2405; J7030; J7040